=== PATIENT | female | born 1940 | race Caucasian/White ===

== ENCOUNTER 2018-05-07 14:53 | Inpatient (IN) | payer OTHER, BC ==
[~2018-05-07] VITALS: Ht 165.1 cm; Wt 61.2 kg
--- NOTE | ~2018-05-07 | LTR ---
May 09, 2018 RE: Cely Chambers MR# [id number] This is to notify, I have reviewed previous DPOA enactment letters and the Alba tong, stated two physicians have previously declared the patient is incapacitated to make health care and living decisions. The patient now continues to lack capacity and her daughter is making her health care decisions. Sincerely, Gautam Solitario DO Attending psychiatrist [place], [place]
[2018-05-07 14:54] VITALS: BP 145/67
[2018-05-07 15:45] LABS: URINE CLARITY CLOUDY; URINE COLOR YELLOW; URINE GLUCOSE-RANDOM* NEGATIVE (Negative); URINE KETONES NEGATIVE (Negative); URINE PROTEIN (DIPSTICK) 2+ (Negative); URINE SPECIFIC GRAVITY 1.025 (1.005-1.035)
[2018-05-07 15:46] LABS: ICTOTEST (BILI CONFIRMATORY) Negative (Negative); URINE BILIRUBIN NEGATIVE (Negative); URINE BLOOD 3+ (Negative); URINE LEUKOCYTES-REFLEX 3+ (Negative); URINE NITRITE-REFLEX NEGATIVE (Negative)
[2018-05-07 15:50] LABS: CASTS None Seen /LPF (None Seen); SQUAMOUS >10 Many /LPF (0-3)
[2018-05-07 15:51] LABS: AMORPHOUS URATES Many /LPF (None Seen); MUCUS >6 Heavy strn/LPF (None Seen); URINE RBC >20 Many /HPF (0-2); WBC CLUMPS Few (None Seen)
[2018-05-07 16:07] LABS: ABSOLUTE NEUTROPHILS 5.2 thou/uL (1.4-8.2); BASOPHILS 0.7 % (0.0-2.0); EOSINOPHILS 1.7 % (0.0-3.0); HEMATOCRIT 39.4 % (37.0-47.0); HEMOGLOBIN 13.7 gm/dL (12.0-15.0); LYMPHOCYTES 15.6 % (24.0-44.0); MCH 31.8 pg (26.0-34.0); MCHC 34.8 g/dL (28.0-37.0); MCV 91.4 fL (80.0-100.0); MONOCYTES 8.6 % (1.0-8.0); PLATELET COUNT 269 thou/uL (150-400); POLYS 73.4 % (36.0-66.0); RBC 4.31 mil/uL (4.20-5.00); RDW 12.5 % (10.5-14.5); WBC 7.1 thou/uL (4.0-11.0)
[2018-05-07 16:12] LABS: ANION GAP 9 mmol/L (7-16); BUN 16 mg/dL (7-18); CALCIUM 9.1 mg/dL (8.5-10.1); CHLORIDE 107 mmol/L (98-107); CO2 27 mmol/L (21-32); GLUCOSE 89 mg/dL (74-106); POTASSIUM 3.7 mmol/L (3.5-5.1); SODIUM 143 mmol/L (136-145)
[2018-05-07 16:21] LABS: TROPONIN-I <0.06 ng/mL (<0.06)
[2018-05-07] MEDS ORDERED: CALCIUM 600 +1 EAC1 PO (17:46)
[2018-05-07] MEDS ORDERED: NORVASC5 MG PO (17:46)
[2018-05-07] MEDS ORDERED: HYDROXYCHLOROQ200 M1 PO (17:47)
[2018-05-07] MEDS ORDERED: SYNTHROID75 MCG PO (17:47)
[2018-05-07] MEDS ORDERED: LISINOPRIL40 MG PO (17:48)
[2018-05-07] MEDS ORDERED: ATIVAN0.5 MG PO (17:48)
[2018-05-07] MEDS ORDERED: SEROQUEL 25 MG25 M1 PO (17:49)
[2018-05-07] MEDS ORDERED: EXELON1 EAC1 TRANSDERM (17:52)
[2018-05-07 17:54] LABS: URINE BILIRUBIN NEGATIVE (Negative); URINE BLOOD NEGATIVE (Negative); URINE CLARITY CLEAR; URINE COLOR YELLOW; URINE GLUCOSE-RANDOM* NEGATIVE (Negative); URINE KETONES NEGATIVE (Negative); URINE LEUKOCYTES-REFLEX NEGATIVE (Negative); URINE NITRITE-REFLEX NEGATIVE (Negative); URINE PROTEIN (DIPSTICK) NEGATIVE (Negative); URINE UROBILINOGEN 0.2 E.U./dl (0.2-1.0)
[2018-05-08 10:50] VITALS: BP 156/93
[2018-05-08 12:49] LABS: TSH 5.985 uIU/mL (0.358-3.740)
[2018-05-08 13:17] LABS: FOLIC ACID 37.1 ng/mL (8.6-58.9)
[2018-05-08 17:56] VITALS: BP 153/83
--- NOTE | 2018-05-08 22:09 | EKG ---
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: RACHEL : 1940 Requested By: Zoë Diaz Order Number: [id number] MD: Gary Paz Measurements Intervals [place] Rate: 67 P: -5 [place]: 187 QRS: -52 QRSD: 133 T: -57 QT: 427 QTc: 451 Interpretive Statements Sinus rhythm Atrial premature complex Probable left atrial enlargement RBBB and LAFB Anteroseptal infarct, age indeterminate Abnormal T, consider ischemia, lateral leads Compared to ECG 05/14/1998 10:49:00 Electronically Signed On 05-08-2018 22:09:39 SHEEP STICKER by Gary Paz [email or web address] <ELECTRONICALLY SIGNED> By: Gary Paz MD 05/08/18 2209 09 09 Gary Paz MD /EPI
[2018-05-08 22:30] VITALS: BP 128/67
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
[2018-05-09 14:07] VITALS: BP 125/62
[2018-05-09 20:40] VITALS: BP 144/66
[2018-05-10] VITALS (8 sets, daily range): BP systolic 170–184; BP diastolic 80–82
[2018-05-11 09:42] VITALS: BP 133/78
[2018-05-11 09:52] VITALS: BP 133/78
[2018-05-11 19:54] VITALS: BP 133/71
[2018-05-13 20:20] VITALS: BP 144/83
[2018-05-14 08:00] VITALS: BP 141/67
[2018-05-14 08:53] VITALS: BP 141/67
[2018-05-14 19:34] VITALS: BP 145/81
[2018-05-15 08:00] VITALS: BP 145/81
[2018-05-16 00:45] VITALS: BP 141/71
[2018-05-16 08:45] VITALS: BP 129/97
[2018-05-16 09:30] VITALS: BP 129/97
[2018-05-16 19:42] VITALS: BP 145/90
[2018-05-17 07:30] VITALS: BP 121/60
[2018-05-17 08:00] VITALS: BP 122/70
[2018-05-17] MEDS ORDERED: HYDROXYCHLOROQ200 M1 PO (08:28)
[2018-05-17] MEDS ORDERED: BENAZEPRIL HCL20 MG PO (08:33)
[2018-05-17] MEDS ORDERED: ZYPREXA 5 MG TAB5 M1 PO ×2 (08:34→08:37)
[2018-05-17] MEDS ORDERED: OLANZAPINE10 M2 IM (08:35)
[2018-05-17] MEDS ORDERED: CALCIUM 600 +1 EAC1 PO (08:38)
[2018-05-17] MEDS ORDERED: MIRALAX17 GM PO (08:40)
[2018-05-17] MEDS ORDERED: SYNTHROID88 MCG PO (08:41)
[2018-05-17 09:08] VITALS: BP 122/70
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
== END 2018-05-17 11:00 | DRG 57 ==
LOC: ER 14:53 → EROBS 17:09 → SBH 17:09
PROVIDERS: Hospitalist; Student in an Organized Health Care Education/Training Program; ADMIT Psychiatry & Neurology Psychiatry
DX: G30.9 Alzheimer's disease, unspecified (principal); N39.0 Urinary tract infection, site not specified; F02.81 Dementia in other diseases classified elsewhere, unspecified severity, with behavioral disturbance; I10 Essential (primary) hypertension; E03.9 Hypothyroidism, unspecified; K58.0 Irritable bowel syndrome with diarrhea; M32.9 Systemic lupus erythematosus, unspecified; M81.0 Age-related osteoporosis without current pathological fracture; M06.9 Rheumatoid arthritis, unspecified; M16.0 Bilateral primary osteoarthritis of hip; M19.042 Primary osteoarthritis, left hand; M19.041 Primary osteoarthritis, right hand; Z90.49 Acquired absence of other specified parts of digestive tract; Z79.899 Other long term (current) drug therapy; Z88.0 Allergy status to penicillin; Z88.2 Allergy status to sulfonamides; Z88.1 Allergy status to other antibiotic agents; Z88.8 Allergy status to other drugs, medicaments and biological substances; Z82.62 Family history of osteoporosis; Z83.511 Family history of glaucoma; Z80.8 Family history of malignant neoplasm of other organs or systems; Z81.8 Family history of other mental and behavioral disorders; Z80.3 Family history of malignant neoplasm of breast; Z83.3 Family history of diabetes mellitus; Z82.49 Family history of ischemic heart disease and other diseases of the circulatory system; Z91.14 Patient's other noncompliance with medication regimen
CPT/HCPCS: 10880